=== PATIENT | male | born 1940 | race African-American/Black ===

== ENCOUNTER 2019-02-06 07:57 | Emergency (ER) | payer MEDICARE ==
--- NOTE | 2019-02-06 08:48 | ER Document Report ---
ED Oral Problem - General Chief Complaint: Toothache Stated Complaint: TOOTHACHE Time Seen by Provider: 02/06/19 08:47 - HPI Notes: 78-year-old male to the emergency department with complaints of upper right tooth ache that began on . He states that he was eating something when his tooth broke off. He states that he has had pain since. His family member relates that he has been taking ibuprofen without any relief. He denies any drooling, ear pain, headache, nausea or vomiting. He denies any sore throat or fevers or chills. He has not taken any blood pressure medicine today. He states he takes HCTZ 25 mg. He has an appointment with his dentist tomorrow. - Related Data Allergies/Adverse Reactions: aspirin Allergy (Verified 02/06/19 08:05) Past Medical History - General Information source: Patient - Social History Smoking Status: Unknown if Ever Smoked Frequency of alcohol use: None Drug Abuse: None Lives with: Family Family History: Reviewed & Not Pertinent Patient has suicidal ideation: No Patient has homicidal ideation: No - Past Medical History Cardiac Medical History: Reports: Hx Hypertension Endocrine Medical History: Reports: Hx Diabetes Mellitus Type 2 Review of Systems - Review of Systems Constitutional: denies: Chills, Fever EENT: Dental problem. denies: Throat pain, Difficulty swallowing, Throat swelling Cardiovascular: denies: Chest pain, Palpitations, Heart racing, Orthopnea, Dyspnea, Dizziness, Lightheaded Respiratory: denies: Cough, Short of breath Gastrointestinal: denies: Abdominal pain, Diarrhea, Nausea, Vomiting Genitourinary: No symptoms reported Male Genitourinary: No symptoms reported Musculoskeletal: No symptoms reported Skin: No symptoms reported Hematologic/Lymphatic: No symptoms reported Neurological/Psychological: No symptoms reported -: Yes All other systems reviewed and negative Physical Exam - Vital signs Vitals: Temp Pulse Resp BP Pulse Ox 99.1 F 88 18 198/76 H 99 02/06/19 08:08 02/06/19 08:08 02/06/19 08:08 02/06/19 08:08 02/06/19 08:08 Interpretation: Hypertensive - General General appearance: Appears well, Alert In distress: None - HEENT Head: Normocephalic, Atraumatic Eyes: Normal Pupils: PERRL Ears: Normal External canal: Normal Tympanic membrane: Normal Sinus: Normal Nasal: Normal Mouth/Lips: Caries - Severe dentition throughout with multiple teeth missing. Several teeth are decayed down to the gumline. The incisor on the right side is broken predominantly down to the gumline and is very tender to palpation. There is no vandana fluctuant abscess. There is no trismus. Airway is grossly intact. there is no Anival's angina., Dental fracture Mucous membranes: Normal Pharynx: Normal. No: Exudate, Peritonsillar abscess, Retropharyngeal abscess, Tonsillar hypertrophy, Uvular edema, Potential airway comprom. Neck: Normal, Supple. 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 Gave patient his dose of HCTZ prior to discharge but he has no concerning symptoms for accelerated hypertension. Have encouraged him to follow-up with dentist. Will start on Tylenol 3 and amoxicillin as well as Peridex. Encouraged to return if any worsening symptoms such as facial swelling, drooling, inability to open mouth, shortness of breath or any other concern patient and family member agree with the plan.s. - Vital Signs Vital signs: Temp Pulse Resp BP Pulse Ox 99.1 F 88 18 163/78 H 99 02/06/19 08:08 02/06/19 08:08 02/06/19 08:08 02/06/19 09:31 02/06/19 08:08 Discharge - Discharge Clinical Impression: Toothache, Broken tooth, Hypertension Condition: Stable Disposition: HOME, SELF-CARE Instructions: Toothache ([facility]) Additional Instructions: FOLLOW UP WITH YOUR DENTIST SCHEDULED TOMORROW. TAKE MEDICINES PRESCRIBED. RETURN IF ANY WORSENING SYMPTOMS. Prescriptions: Acetaminophen with Codeine [Tylenol #3 Tablet] 1 each PO Q4HP PRN #9 tablet PRN Reason: Amoxicillin 1 tab PO TID #30 tab Chlorhexidine Gluconate [Peridex] 15 ml MM BID #420 ml Forms: Elevated Blood Pressure
[2019-02-06] MEDS ORDERED: ACETAMINOPHEN WITH CODEINE #3 TABLET PO ONE (09:15)
[2019-02-06] MEDS ORDERED: HYDROCHLOROTHIAZIDE 25 MG TABLET PO ONE (09:17)
[2019-02-06 09:31] VITALS: BP 163/78
== END 2019-02-06 09:31 | disposition home or self-care (01) ==
LOC: ER 07:57
DX: K08.9 Disorder of teeth and supporting structures, unspecified (principal); I10 Essential (primary) hypertension; E11.9 Type 2 diabetes mellitus without complications; Z88.6 Allergy status to analgesic agent
CPT/HCPCS: 99282; A9270 ×2